=== PATIENT | male | born 1970 | race Caucasian/White ===

== ENCOUNTER 2016-06-22 13:23 | Inpatient (IN) | payer MEDICARE, OTHER ==
--- NOTE | ~2016-06-22 | HP ---
History And Physical [place] [address] [address] [facility] [place]. [address] NAME: BG MADDEN : 66 STATUS : ADM IN PAT#: [id number] AGE: 45 ADM/REG DATE : 06/22/16 MR#: [id number] REPORT SERV DATE: 06/22/16 DICTATED BY: KSENIA GARCES JR DATE: 06/22/16 REPORT STATUS : Draft TRANSCRIBED BY: MODFermin DATE: 06/22/16 DATE OF ADMISSION: 06/22/2016 CHIEF COMPLAINT: Nausea and vomiting. HISTORY: A 45-year-old male, ESRD, presents to ED complaining of two or three days of nausea with vomiting. He describes as only watery liquid in content. No hematemesis or coffee-ground material reported. There has been no diarrhea or blood per rectum. He came to the emergency room because of concern of inability to eat, afraid that he was in DKA, and afraid that he could become hypoglycemic. In the emergency room, he was found to be not acutely ill, but had several investigative items that warrant admission and consideration. 1. [place] [address]. 2. Esophageal thickening seen on imaging studies. 3. Vague hepatic parenchymal lesions about 2 cm in diameter, in two different spots. The patient has ESRD, he says, from diabetic nephropathy. He has diabetic visual disease as well. He does not think he has had any HIV or hepatitis exposure. He is not on any immunotherapy or immune system suppressing drugs. He dialyzes three days a week at the [facility], though he did not go yesterday due to his illness. Subjectively, he has had some fever, in the emergency room, he has not had fever. It appears he was just started on dialysis in December of this year. Dialyzing through a fistula. He has the insulin pump as mentioned. He has obesity, type 1 diabetes, remote CVA with residual right-sided weakness. He is mobile in a wheelchair. He is treated for hypertension, hypothyroidism, and anemia of kidney disease. PAST SURGICAL HISTORY: AV access for dialysis. Left retinal detachment repair. Also, biopsy of a lymph node in his neck. SOCIAL HISTORY: He is single, remote tobacco habituation, but has quit. Denies alcohol or drug use. Disabled and lives in a long-term. FAMILY HISTORY: Significant diabetes in a sister remotely, hypertension, and remote CVA. His sister is now . He states his mother is on hospice, dying from complications of Alzheimer's disease. He states he has one brother locally from whom he is estranged. REVIEW OF SYSTEMS: He otherwise does not acknowledge nor report head, neck, pulmonary, cardiac, genitourinary, musculoskeletal, neurological, or integumentary complaints other than those mentioned in the HPI. He makes very little urine. PHYSICAL EXAMINATION: GENERAL: Overweight male, who is awake, alert, and interacts appropriately, answers questions well. HEENT: Normocephalic, atraumatic. Pupils are equal. No scleral icterus. No conjunctival injection. No conjunctivitis. No periorbital edema. Nose with a midline septum, nares are patent, no epistaxis. Oral mucous membranes are moist, without plaque being observed. History And Physical [address] [address] NAME: BG MADDEN : 66 STATUS : ADM IN [facility]#: [id number] AGE: 45 ADM/REG DATE : 06/22/16 MR#: [id number] REPORT SERV DATE: 06/22/16 DICTATED BY: KSENIA GARCES JR. DATE: 06/22/16 REPORT STATUS : Draft TRANSCRIBED BY: MARGARITA DATE: 06/22/16 Facial symmetry is present. NECK: Fairly good range of motion. No carotid bruits heard. No neck vein distention seen. Adenopathy is not felt. Trachea is midline. LUNGS: Clear to auscultation bilaterally, no increased work of breathing, no adventitious sounds. HEART: Tones were regular without audible rub, murmur, or gallop. PMI is not displaced. ABDOMEN: Generally soft, nontender without palpable visceromegaly. There is no guarding, tenderness, or rebound. Liver edge is not distended. No suprapubic fullness or tenderness is appreciated. GENITALIA: Deferred. No CVA tenderness on palpation. EXTREMITIES: Without edema, turgor is good. No skin lesions are observed. Nailbed cyanosis is not present. NEUROLOGIC: Cognition is good. He interacts well with the examiner. Speech is a little dysarthric, but purely understandable. Facial symmetry is noted. Upper extremity strength asymmetrical, left side stronger than right. Moves all extremities though. Gait is not observed. DTRs are depressed. LABORATORY DATA AND IMAGING: CT imaging concur that there is distal esophageal narrowing, etiology obscure, radiologist has raised consideration of potential neoplasm. As well, there are two lesions in the liver that probably would not have noticed if not highlighted by [place] [address], the hemoglobin is 14, platelets are satisfactory. Electrolytes are satisfactory. ASSESSMENT: 1. Nausea and vomiting for the last two or three days, could be diabetic in origin, could be a viral gastroenteritis or a food-borne illness with an associated leukocytosis. 2. Volume depletion associated with nausea and vomiting. 3. Radiographic imaging showing esophageal wall thickening of unclear etiology to this examiner. 4. Vague parenchymal hepatic lesions outlined by radiologist. 5. Insulin-dependent diabetes mellitus. 6. ESRD. 7. Leukocytosis, though I do not see markers of sepsis. His lactate level is 1. 8. Poor social situation, living in a long-term, estranged from his one living relative, dialyzes at [facility] [place]. PLAN: Orders. DF/MODL Ksenia Garces Jr, M.D. History And Physical [address] [address] NAME: BG MADDEN : 66 STATUS : ADM IN [facility]#: [id number] AGE: 45 ADM/REG DATE : 06/22/16 MR#: [id number] REPORT SERV DATE: 06/22/16 DICTATED BY: KSENIA GARCES JR DATE: 06/22/16 REPORT STATUS : Draft TRANSCRIBED BY: MODL DATE: 06/22/16 / [id number] CC: Ml Livingston Jr
--- NOTE | ~2016-06-22 | CN ---
Consultation Report [place] [address] [facility] [place]. [address] NAME: BG MADDEN : 66 STATUS : ADM IN PAT#: [id number] AGE: 45 ADM/REG DATE : 06/22/16 MR#: [id number] REPORT SERV DATE: 06/24/16 DICTATED BY: VALENCIA COON DATE: 06/23/16 REPORT STATUS : Draft TRANSCRIBED BY: MODL DATE: 06/23/16 CONSULTATION DATE OF CONSULTATION: 06/23/2016 HISTORY OF PRESENT ILLNESS: This is a 45-year-old, white male, admitted with nausea and vomiting for 3 days prior to admission. No bleeding history of GERD. No change in bowel habits. Admits to slight epigastric pain. He has been diabetic for 40 years and has end- stage renal disease, on hemodialysis. CVA in 2013 with residual right-sided weakness, on aspirin 325 mg. No dysphagia. SOCIAL HISTORY: Negative EtOH or nicotine. FAMILY HISTORY: Negative for colon cancer. He has had no abdominal surgeries. LABS: CT reveals a thick distal esophagus and two hepatic lesions. Hemoglobin 14, white count 28,000. PHYSICAL EXAMINATION: VITAL SIGNS: Has had low-grade temp last night. GENERAL: Well-developed, well-nourished, white male, alert and oriented x3. HEENT: Anicteric. NECK: Negative. CHEST: Clear to percussion. HEART: Regular rate and rhythm without murmur or gallop. ABDOMEN: Soft, slightly tender. Epigastric bowel sounds present. EXTREMITIES: Pertinent for a scar and right-sided weakness from CVA. ASSESSMENT: 1. Nausea, vomiting, and gastroesophageal reflux disease, thickness of esophagus from CT, mild tenderness over the epigastrium on exam; on aspirin 325 mg per day. 2. Two hepatic lesions on CT. 3. Diabetes mellitus for 40 years, insulin dependent. 4. End-stage renal disease, on hemodialysis. 5. Status post cerebrovascular accident. 6. Elevated white count 28,000, low-grade temp, on Zosyn. SUGGESTIONS: 1. We will check ultrasound to get a look at the liver and gallbladder. 2. MRI of the liver is compatible with his pain. 3. Schedule EGD. 4. Continue current Protonix. We will follow with you. Consultation Report [address] [place]. [address] NAME: BG MADDEN : [birth year] STATUS : ADM IN PAT#: [id number] AGE: 45 ADM/REG DATE : 06/22/16 MR#: [id number] REPORT SERV DATE: 06/24/16 DICTATED BY: VALENCIA COON DATE: 06/23/16 REPORT STATUS : Draft TRANSCRIBED BY: MODL DATE: 06/23/16 Thank you very much for the consultation. DC/MARGARITA Valencia Coon M.D. / [id number] CC: Ml Livingston Jr
--- NOTE | ~2016-06-22 | DS ---
Discharge Summary [address] [place]. [address] NAME: BG MADDEN : 66 STATUS : DIS IN PAT#: [id number] AGE: 45 ADM/REG DATE : 06/22/16 MR#: [id number] REPORT SERV DATE: 07/12/16 DICTATED BY: ELIAZAR SAVAGE DATE: 07/11/16 REPORT STATUS : Draft TRANSCRIBED BY: MODFermin DATE: 07/11/16 Data Collection from hospitalization DISCHARGE DIAGNOSES: 1. End-stage renal disease. 2. Diarrhea - resolved. 3. Leukocytosis. 4. Duodenal ulcer. 5. Esophagitis. 6. Diabetes mellitus. 7. Hypertension. 8. Hypothyroidism. 9. Anemia of kidney disease. 10.History of remote cerebrovascular accident. 11.Obesity. 12.Remote tobacco use. CONSULTATIONS: Zay Carver M.D. PROCEDURES: 1. Upper GI endoscopy, 06/25/2016. 2. CT scan of the abdomen and pelvis without contrast, 06/22/2016. 3. Abdominal ultrasound, 06/24/2016. 4. MRAG of the abdomen without contrast, 06/25/2016. PATHOLOGY: Gastric antrum "inflammation" biopsies - antral body type mucosa within normal limits. No H. pylori identified on routine stain. Esophagus "esophagitis" biopsies - minimal fragments of squamocolumnar mucosa amidst abundant fibrinopurulent debris. No intestinal metaplasia or dysplasia. DISCHARGE MEDICATIONS: Ecotrin 325 mg every morning; Balanced B one tablet every morning; Coreg 25 mg at bedtime; vitamin D3, 2000 units every morning; Questran Light 4 g 4 times a day; Cardizem CD 120 mg twice a day; Colace 100 mg twice a day; Diflucan 100 mg daily; Flonase nasal spray one spray nasally twice a day as needed; Atarax 10 mg twice a day as needed; Humalog as instructed; Synthroid 50 mcg every morning; Protonix 40 mg every morning; Zantac 150 mg at bedtime; Requip 0.5 mg at bedtime; Zocor 20 mg every morning; sodium bicarb 650 mg twice a day; Carafate 1 g before meals and at bedtime; and probiotic one tablet every morning. CONDITION ON DISCHARGE: Stable. DISPOSITION: The patient was discharged home to be followed by home health care on a low- cholesterol renal - diabetic diet with no concentrated carbohydrates and activities as instructed. He would resume his dialysis as scheduled. HOSPITAL COURSE: This is a 45-year-old man, who has end-stage renal disease, who had complained of 2 to 3 days of nausea with vomiting, who described having only watery liquid stool. He had no hematemesis or coffee-ground material reported. There had been no Discharge Summary [address] [address] NAME: BG MADDEN : 66 STATUS : DIS IN PAT#: [id number] AGE: 45 ADM/REG DATE : 06/22/16 MR#: [id number] REPORT SERV DATE: 07/12/16 DICTATED BY: ELIAZAR SAVAGE DATE: 07/11/16 REPORT STATUS : Draft TRANSCRIBED BY: MARGARITA DATE: 07/11/16 diarrhea or blood per rectum. He came to the emergency room because of concern of inability to eat, and he was afraid that he was in diabetic ketoacidosis and was afraid that he could become hypoglycemic. In the emergency room, he was found to be not acutely ill but had several issues including leukocytosis with a white count of 28,000 and esophageal thickening seen on imaging studies. He had vague hepatic parenchymal lesions, about 2 cm in diameter in 2 different spots. The patient has end-stage renal disease he says from diabetic nephropathy. He has diabetic visual disease as well. He does not think that he has had any HIV or hepatitis exposure. He is not on any immunotherapy or immune system-suppressing drugs. He dialyzes 3 days a week at the [facility], although he did not go on the day prior to this admission due to his illness. Subjectively, he had some fever. In the emergency room, he did not have a fever, it appears that he was just started on dialysis in December of this year and was dialyzing through a fistula. He has an insulin pump. He is obese and has type 1 diabetes and a history of remote CVA with residual right- sided weakness. He is mobile in a wheelchair. He is treated for hypertension, hypothyroidism, and anemia of kidney disease. He is admitted to hospital at this time for further evaluation and treatment. Upon admission, a CT scan of the abdomen and pelvis without contrast was performed. The CT imaging revealed distal esophageal narrowing, etiology obscure. The radiologist raised consideration of potential neoplasms. There were 2 lesions in the liver that probably would not have been noticed if not highlighted by the radiologist. He has a poor social situation and lives in a fdc. The following day, he was seen by Dr. Zay Carver. He admits to having slight epigastric pain at this time. He said he had been a diabetic for 40 years, has end-stage renal disease, and is on hemodialysis. He had a CVA in 2013 with residual right-sided weakness. He is on aspirin. He has no dysphagia. The patient is on Zosyn. An ultrasound was going to be checked to get a look at the liver and gallbladder. An MRI of the liver was compatible with his pain. EGD was going to be scheduled. Protonix was continued. Hemodialysis therapy was performed. On the , abdominal ultrasound was obtained. White count was 14.1. He underwent diabetes education. On 06/25/2016, he still had some nausea and vomiting, his lungs were clear. An MRAG of the abdomen without contrast was performed. There were multiple defects in the liver that were all benign consistent with cysts and 4 hemangiomata. No malignant feature was seen on this noncontrast exam. The patient was taken to the endoscopic suite by Dr. Zay Carver where he underwent the above- mentioned upper GI endoscopy. He tolerated this well. There were no complications. He was found to have severe reflux and candidiasis esophagitis, rule out Polk's esophagus - biopsied. Gastritis was seen and was biopsied. He had multiple duodenal ulcers. The following day, he had multiple liquid bowel movements - 5. He still has some nausea and pain. Proton pump inhibitor and Carafate were continued. Stool was being checked for C. difficile. On 06/27/2016, he still had some diarrhea. His pain had improved somewhat. White count was 12. Creatinine level was 9.75. He was receiving Diflucan. His nausea and vomiting decreased. His abdominal pain was decreasing. He was evaluated by Physical Therapy. His stool was negative for C. difficile. On the , he continued to have some diarrhea, nausea, and vomiting. His abdominal pain was improving. He was on a liquid diet. He was evaluated by Physical Therapy. Stool frequency began to decrease. Hemodialysis therapy continued. Discharge planning was performed. He continued to have some nausea, blood Discharge Summary [facility] [address] [address] NAME: BG MADDEN : 66 STATUS : DIS IN PAT#: [id number] AGE: 45 ADM/REG DATE : 06/22/16 MR#: [id number] REPORT SERV DATE: 07/12/16 DICTATED BY: ELIAZAR SAVAGE DATE: 07/11/16 REPORT STATUS : Draft TRANSCRIBED BY: MODL DATE: 07/11/16 pressure was stable. On 07/04/2016, he was alert and cooperative. He had no focal deficits. His outpatient hemodialysis schedule would be resumed. Discharge instructions were given. Due to his improved and stable condition, he was discharged home to be followed by home health care with the above-stated instructions. Information collected by: Raiza Del Rosario I submit the above information as my discharge summary. RADHA/MARGARITA Eliazar Savage M.D. / [id number] CC: Ml Livingston Jr, M.D.
--- NOTE | ~2016-06-22 | EGD ---
EGD REPORT [facility] [address] [address] NAME: GUILLAUME MADDEN : 66 STATUS : ADM IN PAT#: [id number] AGE: 45 ADM/REG DATE : 06/22/16 MR#: [id number] REPORT SERV DATE: 06/25/16 DICTATED BY: VALENCIA COON DATE: 06/25/16 REPORT STATUS : Draft TRANSCRIBED BY: [facility] DATE: 06/25/16 Endoscopy Center Patient Name: Guillaume Madden Date of : 1970 Attending MD: VALENCIA COON MD Procedure Date No Time: 06/25/2016 Procedure: Upper GI endoscopy Indications: Epigastric abdominal pain, Heartburn, Suspected esophageal reflux, Nausea with vomiting Referring MD: Rebeca Ryan Medicines: as per anesthesia Complications: No immediate complications. Procedure: Pre-Anesthesia Assessment: - ASA Grade Assessment: III - A patient with severe systemic disease. After obtaining informed consent, the endoscope was passed under direct vision. Throughout the procedure, the patient's blood pressure, pulse, and oxygen saturations were monitored continuously. The GIF [id number] was introduced through the mouth, and advanced to the third part of duodenum. The upper GI endoscopy was accomplished without difficulty. The patient tolerated the procedure. Findings: Severe esophagitis was found in the entire esophagus. Biopsies were taken with a cold forceps for histology. brushings done Localized mild inflammation characterized by erythema was found in the gastric antrum. Biopsies were taken with a cold forceps for histology. The cardia and gastric fundus were normal on retroflexion. Many superficial duodenal ulcers were found in the first part of the duodenum and in the second part of the duodenum. The largest lesion was 10 mm in largest dimension. Impression: - Severe reflux and candidiasis esophagitis. Rule out Polk's esophagus. Biopsied. - Gastritis. Biopsied. - Multiple duodenal ulcers. Recommendation: - Await pathology results. - Follow an antireflux regimen. - Use Protonix (pantoprazole) 40 mg PO BID. - Use sucralfate suspension 1 gram PO QID. Procedure Code(s): --- Professional --- EGD REPORT [address] [address] NAME: GUILLAUME MADDEN : 66 STATUS : ADM IN [facility]#: [id number] AGE: 45 ADM/REG DATE : 06/22/16 MR#: [id number] REPORT SERV DATE: 06/25/16 DICTATED BY: VALENCIA COON. DATE: 06/25/16 REPORT STATUS : Draft TRANSCRIBED BY: [employer] DATE: 06/25/16 [address], Esophagogastroduodenoscopy, flexible, transoral; with biopsy, single or multiple Diagnosis Code(s): --- Professional --- K21.0, Gastro-esophageal reflux disease with esophagitis B37.81, Candidal esophagitis K29.70, Gastritis, unspecified, without bleeding K26.9, Duodenal ulcer, unspecified as acute or chronic, without hemorrhage or perforation R10.13, Epigastric pain R12, Heartburn R11.2, Nausea with vomiting, unspecified CPT copyright 2013 [employer]. All rights reserved. The codes documented in this report are preliminary and upon machine featheredger and reducer review may be revised to meet current compliance requirements. VALENCIA COON MD 06/25/2016 1:53 PM This report has been signed electronically. Number of Addenda: 0 Note Initiated On: 06/25/2016 1:14 PM Scope Withdrawal Time 0 hours 0 minutes 0 seconds [address] [id number]
[2016-06-22 11:57] LABS: BASOPHILS 0 %; BASOPHILS ABSOLUTE 0.01 10/3/uL (0.0-0.16); EOSINOPHILS 0 %; IMMATURE GRANULOCYTES 0.5 %; LYMPHOCYTES 5.7 %; LYMPHOCYTES ABSOLUTE 1.62 10/3/uL (0.67-4.30); MEAN CORPUSCULAR HEMOGLOB 31.5 pg (26.0-34.0); MEAN CORPUSCULAR VOLUME 89.4 fL (80-100); MEAN PLATELET VOLUME 10.7 fL (9.2-13.0); MONOCYTES 7.5 %; MONOCYTES ABSOLUTE 2.15 10/3/uL (0.21-1.20); NEUTROPHILS 86.3 %; NEUTROPHILS ABSOLUTE 24.73 10/3/uL (2.02-8.40); PLATELET COUNT 274 10/3/uL (150-400)
[2016-06-22 11:58] LABS: RED CELL COUNT 4.61 10/6/uL (4.7-6.1); WHITE BLOOD CELLS 28.7 10/3/uL (4.5-10.5)
[2016-06-22 11:59] LABS: HEMATOCRIT 41.2 % (40.0-51.0); HEMOGLOBIN 14.5 g/dL (13.6-17.8); IMMATURE GRANULOCYTES ABSOLUTE 0.15 10/3/uL (0.0-0.11); MANUAL DIFF NO %; MEAN CORPUS HGB CONC 35.2 g/dL (32.0-36.0)
[2016-06-22 12:14] LABS: A/G RATIO 0.8 (0.7-1.9); ALBUMIN 3.4 G/DL (3.5-5.0); ALKALINE PHOSPHATASE 125 U/L (45-117); BUN (BLOOD UREA NITROGEN) 91 MG/DL (6-23); CALCIUM, SERUM 9.1 MG/DL (8.5-10.4); CHLORIDE, SERUM 91 MMOL/L (96-112); CO2 (CARBON DIOXIDE) 25 MMOL/L (24-34); GFR AFRICAN AMERICAN 7 ML/MIN (>=60); GFR NON AFRICAN AMERICAN 6 ML/MIN (>=60); GLUCOSE, SERUM 258 MG/DL (60-99); POTASSIUM, SERUM 3.8 MMOL/L (3.5-5.3); SGOT(AST) 12 U/L (5-40); SGPT(ALT) 18 U/L (5-65); SODIUM, SERUM 135 MMOL/L (135-148); TOTAL BILIRUBIN 0.4 MG/DL (0-1.2); TOTAL PROTEIN 7.6 G/DL (6.0-8.5); TROPONIN I 0.04 NG/ML (<0.05)
[2016-06-22 12:15] LABS: GLOBULIN 4.2 G/DL (2.5-4.1)
[2016-06-22 12:20] LABS: BAND NEUTROPHILS 17 %; EOSINOPHILS 1 %; EOSINOPHILS ABSOLUTE (CALC) 0.29 10/3/uL (0.0-0.53); ER DIFF TAT 0 Hrs 28 Mins; LYMPHOCYTES 5 %; LYMPHOCYTES ABSOLUTE (CALC) 1.44 10/3/uL (0.67-4.30); MONOCYTES 9 %; MONOCYTES ABSOLUTE (CALC) 2.58 10/3/uL (0.21-1.20); PLATELET ESTIMATE ADQ (ADEQUATE); SEGMENTED NEUTROPHIL (0) 68 %; TOTAL NUCLEATED CELLS 100; TOXIC GRANULATION SLT; VACUOLATED NEUTROPHILES OCC
[2016-06-22 12:43] LABS: ACETONE NEG
[2016-06-22 12:55] LABS: INFLUENZA A SCREEN NEGATIVE (NEGATIVE); INFLUENZA B SCREEN NEGATIVE (NEGATIVE)
[2016-06-22 13:02] LABS: LACTATE 1.4 MMOL/L (0.3-2.4)
[~2016-06-22 13:23] MED LIST: ALLEGRA180 PO; AMB10 PO; APRES25 PO; ASA5GR PO; CARDCD120 PO; CAT1 PO; COREG12 PO; DEMA20 PO; DSS PO; HUMALOG SC; L40 PO; L80 PO; LANTUS SC; LEVEMIR SC; LEVOTHYROXIN50 MCG PO; LOP50 PO; MELA3 PO; MULTIVIT/MIN PO; MULTIVITAMI1 PO; MYLANTA LIQUID PO; NORV10 PO; NOVOLOG SC; PEPTO BISMOL LIQ1 ML PO; PRILOSEC40 MG PO; PRIN10 PO; PRIN20 PO; PROTONIX PO; REG PO; REG5 PO; REQUIP25 PO; REQUIP5 PO; ROXICET1 TAB PO; SENTAB PO; SODBICAR10 PO; T PO; VITAMIN D31000 UNIT PO; VITAMIN D400 UNI1 PO; ZANAFLEX2 MG PO; ZANTAC 150 PO; ZOCOR20 PO; ZOFRAN4 PO; ZOFRAN8 PO
[2016-06-22] MEDS ORDERED: NOVLOGPUMP SC (13:24)
[2016-06-22] MEDS ORDERED: DSS PO (13:24)
[2016-06-22] MEDS ORDERED: REQUIP5 PO (13:25)
[2016-06-22] MEDS ORDERED: ZANTAC 150 PO (13:25)
[2016-06-22] MEDS ORDERED: CARDCD120 PO (13:25)
[2016-06-22] MEDS ORDERED: AT10 PO (13:26)
[2016-06-22] MEDS ORDERED: SYN.05 PO (13:26)
[2016-06-22] MEDS ORDERED: COREG25 PO (13:27)
[2016-06-22] MEDS ORDERED: PROTONIX PO (13:27)
[2016-06-22] MEDS ORDERED: VITAMIN D31000 UNIT PO (13:27)
[2016-06-22] MEDS ORDERED: PRAVACHOL40 MG PO (13:28)
[2016-06-22] MEDS ORDERED: ASAEC PO (13:28)
[2016-06-22] MEDS ORDERED: DEMA20 PO (13:28)
[2016-06-22] MEDS ORDERED: SODBICAR10 PO (13:28)
[2016-06-22] MEDS ORDERED: OTC PROBIOTIC PO (13:29)
[2016-06-22] MEDS ORDERED: BALANCED B PO (13:29)
[2016-06-22] MEDS ORDERED: MULTIVIT/MIN PO (13:29)
[2016-06-22] MEDS ORDERED: FLONASE NAS (13:30)
[2016-06-22 13:42] LABS: ASCORBIC ACID (UR NOT ORDER) NEG (NEG); BILIRUBIN, URINE NEGATIVE (NEG); ER URINALYSIS TAT 0 Hrs 20 Mins; KETONE, URINE NEGATIVE (NEG); LEUKOCYTE ESTERASE(NOT OR NEG (NEG); NITRITE (URINE) NEG (NEG); WBC (NOT ORDERED) (RFLEX) 2 (0-5)
[2016-06-22 19:35] LABS: ALLENS TEST Pos; BE (BASE EXCESS) 0.4 MEQ/L (0 +/- 2.5); CARBOXYHEMOGLOBIN 1.6 % (0-3); HCO3 (ACTUAL BICARBONATE) 25.3 MEQ/L (23-27); HEMOBLOGIN CONTENT 14.6 G/DL (14-18); INSTRUMENT SERIAL # 8087; METHEMOGLOBIN 0.3 % (0-3); O2 CONTENT 18.4 VOL% (18-24); PCO2 (CO2 TENSION) 42 MMHG (35-45); PO2 (O2 TENSION) 61 MMHG (79-93); SAMPLE Arterial
[2016-06-23 07:17] LABS: HEMOGLOBIN 12.7 g/dL (13.6-17.8); MEAN CORPUSCULAR HEMOGLOB 32.1 pg (26.0-34.0); MEAN CORPUSCULAR VOLUME 91.7 fL (80-100); PLATELET COUNT 242 10/3/uL (150-400); RBC DISTRIBUTION WIDTH 13.5 % (12.0-16.0); RED CELL COUNT 3.96 10/6/uL (4.7-6.1)
[2016-06-23 07:24] LABS: HEMATOCRIT 36.3 % (40.0-51.0); MANUAL DIFF YES %; WHITE BLOOD CELLS 26.8 10/3/uL (4.5-10.5)
[2016-06-23 07:37] LABS: ALBUMIN 2.9 G/DL (3.5-5.0); CALCIUM, SERUM 8.5 MG/DL (8.5-10.4); CHLORIDE, SERUM 92 MMOL/L (96-112); CO2 (CARBON DIOXIDE) 25 MMOL/L (24-34); POTASSIUM, SERUM 4.1 MMOL/L (3.5-5.3); SODIUM, SERUM 136 MMOL/L (135-148)
[2016-06-23 07:39] LABS: BUN (BLOOD UREA NITROGEN) 106 MG/DL (6-23); GFR AFRICAN AMERICAN 6 ML/MIN (>=60); GFR NON AFRICAN AMERICAN 5 ML/MIN (>=60); GLUCOSE, SERUM 189 MG/DL (60-99); PHOSPHORUS, SERUM 7.7 MG/DL (2.5-4.5)
[2016-06-23 07:43] LABS: BAND NEUTROPHILS 8 %; EOSINOPHILS 2 %; EOSINOPHILS ABSOLUTE (CALC) 0.54 10/3/uL (0.0-0.53); IMMATURE GRANS ABSOLUTE (CALC) 0.27 10/3/uL (0.0-0.11); LYMPHOCYTES 13 %; LYMPHOCYTES ABSOLUTE (CALC) 3.48 10/3/uL (0.67-4.30); METAMYELOCYTES 1 %; MONOCYTES 9 %; MONOCYTES ABSOLUTE (CALC) 2.41 10/3/uL (0.21-1.20); PLATELET ESTIMATE ADQ (ADEQUATE); SEGMENTED NEUTROPHIL (0) 67 %; TOTAL NUCLEATED CELLS 100; TOXIC GRANULATION SLT
[2016-06-23 07:44] LABS: HELMET CELLS OCC (0-2/OIF); POLYCHROMASIA 1+ (2-5/OIF) (0-1/OIF); VACUOLATED NEUTROPHILES OCC
[2016-06-23 11:00] LABS: PROCALCITONIN 0.96 ng/mL (<0.5)
[2016-06-24 09:36] LABS: BASOPHILS 0.2 %; BASOPHILS ABSOLUTE 0.03 10/3/uL (0.0-0.16); EOSINOPHILS 1.7 %; EOSINOPHILS ABSOLUTE 0.24 10/3/uL (0.0-0.53); HEMATOCRIT 33.4 % (40.0-51.0); HEMOGLOBIN 11.9 g/dL (13.6-17.8); IMMATURE GRANULOCYTES 0.4 %; IMMATURE GRANULOCYTES ABSOLUTE 0.06 10/3/uL (0.0-0.11); LYMPHOCYTES 18.8 %; LYMPHOCYTES ABSOLUTE 2.66 10/3/uL (0.67-4.30); MEAN CORPUS HGB CONC 35.6 g/dL (32.0-36.0); MEAN CORPUSCULAR HEMOGLOB 31.3 pg (26.0-34.0); MEAN PLATELET VOLUME 10.5 fL (9.2-13.0); MONOCYTES 10.8 %; MONOCYTES ABSOLUTE 1.53 10/3/uL (0.21-1.20); NEUTROPHILS 68.1 %; PLATELET COUNT 252 10/3/uL (150-400); RBC DISTRIBUTION WIDTH 13.6 % (12.0-16.0)
[2016-06-24 09:37] LABS: MANUAL DIFF NO %; MEAN CORPUSCULAR VOLUME 87.9 fL (80-100); WHITE BLOOD CELLS 14.1 10/3/uL (4.5-10.5)
[2016-06-24 09:54] LABS: ALBUMIN 2.9 G/DL (3.5-5.0); CALCIUM, SERUM 8.3 MG/DL (8.5-10.4); CHLORIDE, SERUM 92 MMOL/L (96-112); CO2 (CARBON DIOXIDE) 26 MMOL/L (24-34); PHOSPHORUS, SERUM 7.5 MG/DL (2.5-4.5); POTASSIUM, SERUM 3.6 MMOL/L (3.5-5.3); SODIUM, SERUM 135 MMOL/L (135-148)
[2016-06-24 09:56] LABS: BUN (BLOOD UREA NITROGEN) 110 MG/DL (6-23); GFR AFRICAN AMERICAN 5 ML/MIN (>=60); GFR NON AFRICAN AMERICAN 5 ML/MIN (>=60); GLUCOSE, SERUM 122 MG/DL (60-99)
[2016-06-25 07:09] LABS: INTERNATIONAL NORMAL RATI 1.2 UNITS (-); PARTIAL THROMBO TIME 32.6 SEC (22.5-37.2); PROTIME (NOT ORD) 15.2 SEC (12.0-14.5)
[2016-06-26 12:55] LABS: BASOPHILS 0.3 %; BASOPHILS ABSOLUTE 0.03 10/3/uL (0.0-0.16); EOSINOPHILS 3.6 %; EOSINOPHILS ABSOLUTE 0.43 10/3/uL (0.0-0.53); HEMATOCRIT 34.5 % (40.0-51.0); HEMOGLOBIN 12.2 g/dL (13.6-17.8); IMMATURE GRANULOCYTES 0.9 %; IMMATURE GRANULOCYTES ABSOLUTE 0.11 10/3/uL (0.0-0.11); LYMPHOCYTES 12.2 %; LYMPHOCYTES ABSOLUTE 1.46 10/3/uL (0.67-4.30); MEAN CORPUS HGB CONC 35.4 g/dL (32.0-36.0); MEAN CORPUSCULAR HEMOGLOB 31.3 pg (26.0-34.0); MEAN CORPUSCULAR VOLUME 88.5 fL (80-100); MEAN PLATELET VOLUME 9.7 fL (9.2-13.0); MONOCYTES 7.8 %; MONOCYTES ABSOLUTE 0.94 10/3/uL (0.21-1.20); NEUTROPHILS 75.2 %; NEUTROPHILS ABSOLUTE 9.03 10/3/uL (2.02-8.40); PLATELET COUNT 290 10/3/uL (150-400); RBC DISTRIBUTION WIDTH 13.6 % (12.0-16.0)
[2016-06-26 12:56] LABS: MANUAL DIFF NO %
[2016-06-26 13:11] LABS: ALBUMIN 2.8 G/DL (3.5-5.0); CALCIUM, SERUM 8.2 MG/DL (8.5-10.4); CHLORIDE, SERUM 98 MMOL/L (96-112); CO2 (CARBON DIOXIDE) 24 MMOL/L (24-34); POTASSIUM, SERUM 3.7 MMOL/L (3.5-5.3); SODIUM, SERUM 138 MMOL/L (135-148)
[2016-06-26 13:12] LABS: BUN (BLOOD UREA NITROGEN) 74 MG/DL (6-23); CREATININE 9.75 MG/DL (0.70-1.30); GFR AFRICAN AMERICAN 7 ML/MIN (>=60); GFR NON AFRICAN AMERICAN 6 ML/MIN (>=60); GLUCOSE, SERUM 150 MG/DL (60-99); PHOSPHORUS, SERUM 5.3 MG/DL (2.5-4.5)
[2016-06-28 13:58] LABS: BASOPHILS 0.5 %; BASOPHILS ABSOLUTE 0.07 10/3/uL (0.0-0.16); EOSINOPHILS 4.5 %; EOSINOPHILS ABSOLUTE 0.59 10/3/uL (0.0-0.53); HEMATOCRIT 35.3 % (40.0-51.0); HEMOGLOBIN 12.3 g/dL (13.6-17.8); IMMATURE GRANULOCYTES 1.8 %; IMMATURE GRANULOCYTES ABSOLUTE 0.24 10/3/uL (0.0-0.11); LYMPHOCYTES 16.5 %; LYMPHOCYTES ABSOLUTE 2.16 10/3/uL (0.67-4.30); MANUAL DIFF NO %; MEAN CORPUS HGB CONC 34.8 g/dL (32.0-36.0); MEAN CORPUSCULAR HEMOGLOB 31.3 pg (26.0-34.0); MEAN CORPUSCULAR VOLUME 89.8 fL (80-100); MEAN PLATELET VOLUME 9.8 fL (9.2-13.0); MONOCYTES 12.3 %; MONOCYTES ABSOLUTE 1.61 10/3/uL (0.21-1.20); NEUTROPHILS 64.4 %; PLATELET COUNT 320 10/3/uL (150-400); RBC DISTRIBUTION WIDTH 13.3 % (12.0-16.0); RED CELL COUNT 3.93 10/6/uL (4.7-6.1); WHITE BLOOD CELLS 13.1 10/3/uL (4.5-10.5)
[2016-06-28 14:10] LABS: ALBUMIN 2.7 G/DL (3.5-5.0); BUN (BLOOD UREA NITROGEN) 49 MG/DL (6-23); CALCIUM, SERUM 8.2 MG/DL (8.5-10.4); CHLORIDE, SERUM 100 MMOL/L (96-112); CO2 (CARBON DIOXIDE) 25 MMOL/L (24-34); GFR AFRICAN AMERICAN 6 ML/MIN (>=60); GFR NON AFRICAN AMERICAN 5 ML/MIN (>=60); GLUCOSE, SERUM 118 MG/DL (60-99); PHOSPHORUS, SERUM 4.7 MG/DL (2.5-4.5); POTASSIUM, SERUM 3.4 MMOL/L (3.5-5.3); SODIUM, SERUM 140 MMOL/L (135-148)
[2016-06-29 09:48] LABS: HEMATOCRIT 35.3 % (40.0-51.0); HEMOGLOBIN 12.6 g/dL (13.6-17.8); MEAN CORPUS HGB CONC 35.7 g/dL (32.0-36.0); MEAN CORPUSCULAR HEMOGLOB 31.7 pg (26.0-34.0); MEAN CORPUSCULAR VOLUME 88.7 fL (80-100); PLATELET COUNT 330 10/3/uL (150-400); RBC DISTRIBUTION WIDTH 13.8 % (12.0-16.0); RED CELL COUNT 3.98 10/6/uL (4.7-6.1); WHITE BLOOD CELLS 14.4 10/3/uL (4.5-10.5)
[2016-06-29 09:49] LABS: MANUAL DIFF YES %
[2016-06-29 10:00] LABS: ALBUMIN 2.8 G/DL (3.5-5.0); CALCIUM, SERUM 8.1 MG/DL (8.5-10.4); CHLORIDE, SERUM 100 MMOL/L (96-112); CO2 (CARBON DIOXIDE) 23 MMOL/L (24-34); PHOSPHORUS, SERUM 5.2 MG/DL (2.5-4.5); POTASSIUM, SERUM 3.5 MMOL/L (3.5-5.3); SODIUM, SERUM 139 MMOL/L (135-148)
[2016-06-29 10:01] LABS: BUN (BLOOD UREA NITROGEN) 35 MG/DL (6-23); CREATININE 9.93 MG/DL (0.70-1.30); GFR AFRICAN AMERICAN 6 ML/MIN (>=60); GFR NON AFRICAN AMERICAN 6 ML/MIN (>=60); GLUCOSE, SERUM 176 MG/DL (60-99)
[2016-06-29 10:08] LABS: BAND NEUTROPHILS 1 %; EOSINOPHILS 4 %; EOSINOPHILS ABSOLUTE (CALC) 0.58 10/3/uL (0.0-0.53); LYMPHOCYTES 16 %; MONOCYTES 9 %; NEUTROPHILS ABSOLUTE (CALC) 10.22 10/3/uL (2.02-8.40); PLATELET ESTIMATE ADQ (ADEQUATE); SEGMENTED NEUTROPHIL (0) 70 %; TOTAL NUCLEATED CELLS 100
[2016-06-29 10:09] LABS: RBC MORPHOLOGY NORM (NORMAL)
[2016-06-30 06:59] LABS: HEMATOCRIT 38.6 % (40.0-51.0); HEMOGLOBIN 13.5 g/dL (13.6-17.8); MEAN CORPUSCULAR HEMOGLOB 31.7 pg (26.0-34.0); MEAN CORPUSCULAR VOLUME 90.6 fL (80-100); MEAN PLATELET VOLUME 10.2 fL (9.2-13.0); PLATELET COUNT 359 10/3/uL (150-400); RBC DISTRIBUTION WIDTH 13.5 % (12.0-16.0); RED CELL COUNT 4.26 10/6/uL (4.7-6.1); WHITE BLOOD CELLS 14.7 10/3/uL (4.5-10.5)
[2016-06-30 07:01] LABS: MANUAL DIFF YES %
[2016-06-30 07:28] LABS: BAND NEUTROPHILS 4 %; EOSINOPHILS 1 %; EOSINOPHILS ABSOLUTE (CALC) 0.15 10/3/uL (0.0-0.53); LYMPHOCYTES 19 %; LYMPHOCYTES ABSOLUTE (CALC) 2.79 10/3/uL (0.67-4.30); MONOCYTES 9 %; MONOCYTES ABSOLUTE (CALC) 1.32 10/3/uL (0.21-1.20); NEUTROPHILS ABSOLUTE (CALC) 10.44 10/3/uL (2.02-8.40); PLATELET ESTIMATE ADQ (ADEQUATE); RBC MORPHOLOGY NORM (NORMAL); SEGMENTED NEUTROPHIL (0) 67 %; TOTAL NUCLEATED CELLS 100
[2016-06-30 08:00] LABS: ALBUMIN 2.9 G/DL (3.5-5.0); CHLORIDE, SERUM 100 MMOL/L (96-112); CO2 (CARBON DIOXIDE) 21 MMOL/L (24-34); GFR AFRICAN AMERICAN 6 ML/MIN (>=60); GFR NON AFRICAN AMERICAN 6 ML/MIN (>=60); GLUCOSE, SERUM 186 MG/DL (60-99); PHOSPHORUS, SERUM 5.2 MG/DL (2.5-4.5); POTASSIUM, SERUM 3.9 MMOL/L (3.5-5.3); SODIUM, SERUM 136 MMOL/L (135-148)
[2016-06-30 08:02] LABS: BUN (BLOOD UREA NITROGEN) 31 MG/DL (6-23); CALCIUM, SERUM 9.3 MG/DL (8.5-10.4)
[2016-07-01 13:53] LABS: HEMATOCRIT 35.4 % (40.0-51.0); HEMOGLOBIN 12.5 g/dL (13.6-17.8); MEAN CORPUS HGB CONC 35.3 g/dL (32.0-36.0); MEAN CORPUSCULAR HEMOGLOB 31.3 pg (26.0-34.0); MEAN CORPUSCULAR VOLUME 88.5 fL (80-100); PLATELET COUNT 398 10/3/uL (150-400); RBC DISTRIBUTION WIDTH 13.5 % (12.0-16.0); WHITE BLOOD CELLS 14.9 10/3/uL (4.5-10.5)
[2016-07-01 13:54] LABS: MANUAL DIFF YES %
[2016-07-01 14:01] LABS: ALBUMIN 2.9 G/DL (3.5-5.0); CALCIUM, SERUM 8.7 MG/DL (8.5-10.4); CHLORIDE, SERUM 96 MMOL/L (96-112); CO2 (CARBON DIOXIDE) 22 MMOL/L (24-34); GFR AFRICAN AMERICAN 5 ML/MIN (>=60); GFR NON AFRICAN AMERICAN 4 ML/MIN (>=60); GLUCOSE, SERUM 191 MG/DL (60-99); PHOSPHORUS, SERUM 5.5 MG/DL (2.5-4.5); POTASSIUM, SERUM 3.7 MMOL/L (3.5-5.3); SODIUM, SERUM 135 MMOL/L (135-148)
[2016-07-01 14:02] LABS: BUN (BLOOD UREA NITROGEN) 52 MG/DL (6-23)
[2016-07-01 15:23] LABS: BAND NEUTROPHILS 2 %; EOSINOPHILS 4 %; LYMPHOCYTES 24 %; LYMPHOCYTES ABSOLUTE (CALC) 3.58 10/3/uL (0.67-4.30); MONOCYTES 10 %; MONOCYTES ABSOLUTE (CALC) 1.49 10/3/uL (0.21-1.20); NEUTROPHILS ABSOLUTE (CALC) 9.24 10/3/uL (2.02-8.40); SEGMENTED NEUTROPHIL (0) 60 %; TOTAL NUCLEATED CELLS 100
[2016-07-01 15:24] LABS: OVALOCYTES 1+ (3-10/OIF) (0-2/OIF); PLATELET ESTIMATE ADQ (ADEQUATE); SPHEROCYTES FEW (3-10/OIF)
[2016-07-02 05:54] LABS: HEMATOCRIT 35.1 % (40.0-51.0); HEMOGLOBIN 12.2 g/dL (13.6-17.8); MEAN CORPUS HGB CONC 34.8 g/dL (32.0-36.0); MEAN CORPUSCULAR HEMOGLOB 31.8 pg (26.0-34.0); MEAN PLATELET VOLUME 9.8 fL (9.2-13.0); PLATELET COUNT 335 10/3/uL (150-400); RBC DISTRIBUTION WIDTH 13.7 % (12.0-16.0); RED CELL COUNT 3.84 10/6/uL (4.7-6.1); WHITE BLOOD CELLS 14.9 10/3/uL (4.5-10.5)
[2016-07-02 05:56] LABS: MANUAL DIFF YES %; MEAN CORPUSCULAR VOLUME 91.4 fL (80-100)
[2016-07-02 06:10] LABS: ALBUMIN 2.8 G/DL (3.5-5.0); BUN (BLOOD UREA NITROGEN) 30 MG/DL (6-23); CALCIUM, SERUM 8.6 MG/DL (8.5-10.4); CHLORIDE, SERUM 102 MMOL/L (96-112); CO2 (CARBON DIOXIDE) 25 MMOL/L (24-34); CREATININE 9.12 MG/DL (0.70-1.30); GFR AFRICAN AMERICAN 7 ML/MIN (>=60); GFR NON AFRICAN AMERICAN 6 ML/MIN (>=60); GLUCOSE, SERUM 159 MG/DL (60-99); PHOSPHORUS, SERUM 4.1 MG/DL (2.5-4.5); POTASSIUM, SERUM 4.1 MMOL/L (3.5-5.3); SODIUM, SERUM 138 MMOL/L (135-148)
[2016-07-02 06:22] LABS: BAND NEUTROPHILS 4 %; EOSINOPHILS 2 %; IMMATURE GRANS ABSOLUTE (CALC) 0.15 10/3/uL (0.0-0.11); LYMPHOCYTES 18 %; LYMPHOCYTES ABSOLUTE (CALC) 2.68 10/3/uL (0.67-4.30); MONOCYTES 7 %; MONOCYTES ABSOLUTE (CALC) 1.04 10/3/uL (0.21-1.20); MYELOCYTES 1 %; NEUTROPHILS ABSOLUTE (CALC) 10.73 10/3/uL (2.02-8.40); SEGMENTED NEUTROPHIL (0) 68 %; TOTAL NUCLEATED CELLS 100
[2016-07-02 06:23] LABS: PLATELET ESTIMATE ADQ (ADEQUATE); RBC MORPHOLOGY NORM (NORMAL)
[2016-07-03 07:14] LABS: HEMATOCRIT 33.6 % (40.0-51.0); HEMOGLOBIN 11.8 g/dL (13.6-17.8); MEAN CORPUS HGB CONC 35.1 g/dL (32.0-36.0); MEAN CORPUSCULAR VOLUME 91.1 fL (80-100); PLATELET COUNT 329 10/3/uL (150-400); RBC DISTRIBUTION WIDTH 13.5 % (12.0-16.0); RED CELL COUNT 3.69 10/6/uL (4.7-6.1); WHITE BLOOD CELLS 14.6 10/3/uL (4.5-10.5)
[2016-07-03 07:15] LABS: MANUAL DIFF YES %
[2016-07-03 07:29] LABS: ALBUMIN 2.8 G/DL (3.5-5.0); CALCIUM, SERUM 8.4 MG/DL (8.5-10.4); CHLORIDE, SERUM 96 MMOL/L (96-112); CO2 (CARBON DIOXIDE) 22 MMOL/L (24-34); PHOSPHORUS, SERUM 4.2 MG/DL (2.5-4.5); POTASSIUM, SERUM 4.5 MMOL/L (3.5-5.3)
[2016-07-03 07:30] LABS: BUN (BLOOD UREA NITROGEN) 47 MG/DL (6-23); GFR AFRICAN AMERICAN 6 ML/MIN (>=60); GFR NON AFRICAN AMERICAN 5 ML/MIN (>=60); GLUCOSE, SERUM 340 MG/DL (60-99); SODIUM, SERUM 130 MMOL/L (135-148)
[2016-07-03 07:43] LABS: BAND NEUTROPHILS 10 %; IMMATURE GRANS ABSOLUTE (CALC) 0.58 10/3/uL (0.0-0.11); LYMPHOCYTES 17 %; LYMPHOCYTES ABSOLUTE (CALC) 2.48 10/3/uL (0.67-4.30); METAMYELOCYTES 4 %; MONOCYTES 10 %; MONOCYTES ABSOLUTE (CALC) 1.46 10/3/uL (0.21-1.20); NEUTROPHILS ABSOLUTE (CALC) 10.07 10/3/uL (2.02-8.40); PLATELET ESTIMATE ADQ (ADEQUATE); RBC MORPHOLOGY NORM (NORMAL); SEGMENTED NEUTROPHIL (0) 59 %; TOTAL NUCLEATED CELLS 100
[2016-07-04] MEDS ORDERED: SUCR PO (10:22)
[2016-07-04] MEDS ORDERED: QUESLITE PO (10:23)
[2016-07-04] MEDS ORDERED: FLUCON1 PO (10:23)
[2016-10-08] MEDS ORDERED: DEMA20 PO (15:26)
[2016-11-17] MEDS ORDERED: DIALYVITE PO (19:40)
[2016-11-17] MEDS ORDERED: THERGRANM PO (19:40)
[2016-11-17] MEDS ORDERED: RENVELA800 MG PO (19:41)
[2016-11-17] MEDS ORDERED: AUG875 PO (19:42)
[2016-11-22] MEDS ORDERED: LEVAQUIN5T PO (11:22)
== END 2016-07-04 14:30 | disposition home or self-care (01) | DRG 383 ==
LOC: ER 13:23 → 2SO 15:32
PROVIDERS: Internal Medicine Gastroenterology; Internal Medicine Nephrology; Nurse Practitioner; Registered Nurse
PROC: 5A1D60Z (ICD-10-PCS; 2016-06-24)
PROC: 0DB68ZX Excision of Stomach, Via Natural or Artificial Opening Endoscopic, Diagnostic (ICD-10-PCS; 2016-06-25)
PROC: 0DB58ZX Excision of Esophagus, Via Natural or Artificial Opening Endoscopic, Diagnostic (ICD-10-PCS; 2016-06-25)
PROC: 0DB38ZX Excision of Lower Esophagus, Via Natural or Artificial Opening Endoscopic, Diagnostic (ICD-10-PCS; 2016-06-25)
PROC: 0DB28ZX Excision of Middle Esophagus, Via Natural or Artificial Opening Endoscopic, Diagnostic (ICD-10-PCS; principal; 2016-06-25 12:00)
DX: K26.9 Duodenal ulcer, unspecified as acute or chronic, without hemorrhage or perforation (principal); N18.6 End stage renal disease; I12.0 Hypertensive chronic kidney disease with stage 5 chronic kidney disease or end stage renal disease; B37.81 Candidal esophagitis; E10.21 Type 1 diabetes mellitus with diabetic nephropathy; I69.351 Hemiplegia and hemiparesis following cerebral infarction affecting right dominant side; K29.70 Gastritis, unspecified, without bleeding; K21.0 Gastro-esophageal reflux disease with esophagitis; E10.22 Type 1 diabetes mellitus with diabetic chronic kidney disease; E10.319 Type 1 diabetes mellitus with unspecified diabetic retinopathy without macular edema; E66.09 Other obesity due to excess calories; E03.9 Hypothyroidism, unspecified; D63.1 Anemia in chronic kidney disease; E86.9 Volume depletion, unspecified; K76.9 Liver disease, unspecified; Z99.2 Dependence on renal dialysis; Z79.4 Long term (current) use of insulin; Z86.73 Personal history of transient ischemic attack (TIA), and cerebral infarction without residual deficits; Z87.891 Personal history of nicotine dependence
CPT/HCPCS: 36600; 71010; 74176; 76700; 80053; 80069; 81001; 82009; 82805; 82962; 83605; 83690; 83735; 84145; 84484; 85025; 85610; 85730; 87040; 87210; 87493; 87493-59; 87804; 88305; 89055; 96374; 96375; 97110-GP; 97116-GP; 97161-GP; 99285; A9270-GY; C8901; G0257; G8978-CK-GP; G8979-CK-GP; G8980-CK-GP; J2405; J2543; J2997; P9047